=== PATIENT | female | born 1970 | race Caucasian/White ===

== ENCOUNTER → 2017-09-16 | Outpatient (CLI) | payer OTHER | LOC: BMCIMAGING 13:46 | PROVIDERS: ATTEND Family Medicine | DX: M79.661 Pain in right lower leg (principal) ==

== ENCOUNTER → 2018-05-13 | Outpatient (CLI) | payer OTHER | LOC: FIMAGING 11:45 | PROVIDERS: ATTEND Obstetrics & Gynecology | DX: Z12.31 Encounter for screening mammogram for malignant neoplasm of breast (principal) ==